=== PATIENT | female | born 1990 | race Caucasian/White ===

== ENCOUNTER → 2016-11-09 | Outpatient (CLI) | payer BC ==
[~2016-11-09] MED LIST: DROS3TAB OR; SYN75 PO; ZFRODT4 SL
[2016-11-10 23:08] LABS: VARICELLA ZOS VIR IGG VALUE 1.58 INDEX
== END | disposition home or self-care (01) ==
LOC: C.LABBFT 09:19
PROVIDERS: ATTEND Nurse Practitioner
DX: Z23 Encounter for immunization (principal)

== ENCOUNTER → 2016-12-12 | Outpatient (CLI) | payer BC | END | disposition home or self-care (01) | LOC: C.PAPS 10:52 | PROVIDERS: ATTEND Obstetrics & Gynecology | DX: Z01.419 Encounter for gynecological examination (general) (routine) without abnormal findings (principal) ==

== ENCOUNTER → 2016-12-12 | Outpatient (CLI) | payer BC ==
--- NOTE | 2016-12-12 16:06 | DIAGNOSTIC IMAGING REPORT ---
LUMBAR SPINE RADIOGRAPHS, INCLUDING FLEXION AND EXTENSION CLINICAL HISTORY: Lower back pain. COMPARISON: None FINDINGS: Alignment of lumbar spine is anatomic. Vertebral body heights are maintained. There is no fracture or suspicious lesion. Disc spaces are preserved. There is no evidence for instability during flexion or extension. IMPRESSION: 1. Unremarkable lumbar spine radiographs. 2. No evidence for instability during flexion or extension. Electronically signed by: Bassem Mooney M.D. 12/12/2016 4:05 PM Dictated Date/Time: 12/12/2016 4:04 PM
--- NOTE | 2016-12-12 16:07 | DIAGNOSTIC IMAGING REPORT ---
SI JOINTS 3 OR MORE VIEWS CLINICAL HISTORY: Lower back pain. COMPARISON STUDY: No previous studies for comparison. FINDINGS: An intrauterine device projects over the pelvis. The sacroiliac joints are intact without evidence for ankylosis. No fracture or suspicious lesion is identified on these images. Joint spaces are preserved. IMPRESSION: Unremarkable sacroiliac joint radiographs. Electronically signed by: Bassem Mooney M.D. 12/12/2016 4:07 PM Dictated Date/Time: 12/12/2016 4:06 PM
== END | disposition home or self-care (01) ==
LOC: C.RAD1850 15:21
PROVIDERS: ATTEND Physician Assistant Medical
DX: Z01.419 Encounter for gynecological examination (general) (routine) without abnormal findings (principal); M54.5 Low back pain

== ENCOUNTER → 2016-12-12 | Outpatient (CLI) | payer BC ==
[2016-12-15 03:05] LABS: CHLAMYDIA TRACH RNA*** NOT DETECTED (NOT DETECTED); GC (NEIS GONORRHOEAE)RNA** NOT DETECTED (NOT DETECTED)
== END | disposition home or self-care (01) ==
LOC: C.LABSPEC 15:34
PROVIDERS: ATTEND Obstetrics & Gynecology
DX: Z01.419 Encounter for gynecological examination (general) (routine) without abnormal findings (principal)

== ENCOUNTER → 2017-12-22 | Outpatient (CLI) | payer BC | END | disposition home or self-care (01) | LOC: C.LABSPEC 11:06 | PROVIDERS: ATTEND Obstetrics & Gynecology | DX: Z01.419 Encounter for gynecological examination (general) (routine) without abnormal findings (principal) ==

== ENCOUNTER → 2018-03-30 | Outpatient (CLI) | payer BC | END | disposition home or self-care (01) | LOC: C.LABBFT 11:25 | PROVIDERS: ATTEND Physician Assistant Medical | DX: E03.9 Hypothyroidism, unspecified (principal) ==